=== PATIENT | female | born 1980 | race Caucasian/White ===

== ENCOUNTER 2017-07-15 16:24 | Emergency (ER) | payer OTHER, MEDICAID ==
[~2017-07-15] VITALS: Ht 162.6 cm; Wt 82.3 kg
[2017-07-15 17:04] VITALS: BP 105/63
[2017-07-15 17:43] LABS: BASOPHILS # (AUTO) 0.3 K/uL (0.00-0.22); EOSINOPHILS # (AUTO) 0.1 K/uL (0-0.4); HEMATOCRIT 44.7 % (36-48); HEMOGLOBIN 14.7 g/dL (12.0-16.0); LYMPHOCYTES # (AUTO) 2.3 K/uL (2.5-16.5); MEAN CORPUSCULAR HEMOGLOBIN 31 pg (27-31); MEAN CORPUSCULAR HGB CONC 33 g/dL (33-37); MEAN CORPUSCULAR VOLUME 94 fL (80-94); MONOCYTES # (AUTO) 0.4 K/uL (0.8-1.0); NEUTROPHILS # (AUTO) 4.5 K/uL (1.8-7.7); PLATELET COUNT (AUTO) 288 K/uL (140-450); RED BLOOD CELL COUNT(AUTO) 4.73 MIL/uL (4.20-5.40); RED CELL DISTRIBUTION WIDTH 12.6 % (11.6-13.7); WHITE BLOOD COUNT (AUTO) 7.6 K/uL (4.8-10.8)
[2017-07-15 17:51] LABS: BILIRUBIN,URINE NEGATIVE (NEGATIVE); BLOOD, URINE 3+ (NEGATIVE); COLOR,URINE YELLOW (YELLOW); LEUKOCYTE ESTERASE ,URINE NEGATIVE (NEGATIVE); NITRITE, URINE NEGATIVE (NEGATIVE); UGLUCOSE NEGATIVE (NEGATIVE)
[2017-07-15 17:56] LABS: APPEARANCE,URINE CLOUDY (CLEAR)
[2017-07-15 18:09] LABS: RBC,URINE TOO NUMEROUS TO COUN /HPF (0-5); WBC,URINE 0-5 (RARE) /HPF (0-5)
--- NOTE | 2017-07-15 18:40 | NUR ---
36/F C/O VAG BLEDDING & PELVIC PAIN X 2 DAYS. DENIES N/V/D; SKIN IS PINK/WARM/DRY; AAOX4 WITH EVEN AND STEADY GAIT; LUNGS CLEAR BL; HR EVEN AND REGULAR; PT DENIES ANY FEVER, CP, SOB, OR COUGH AT THIS TIME; PATIENT STATES PAIN OF 05/10 AT THIS TIME; VSS; PATIENT POSITIONED FOR COMFORT; HOB ELEVATED; BEDRAILS UP X2; BED DOWN. ER MD MADE AWARE OF PT STATUS.
--- NOTE | 2017-07-15 19:13 | NUR ---
Dr. Belle evaluating patient at bedside.
--- NOTE | 2017-07-15 19:23 | NUR ---
Pt report given to CHRIS NUR. Transfer of care at this time.
--- NOTE | 2017-07-15 19:25 | NUR ---
PT RESTING IN BED, VSS, AWATING FOR TO BE SEEN.
[2017-07-15] MEDS ORDERED: HYDROcodone/APAP 5/325 MG 1 TAB TAB PO ONE (20:15)
--- NOTE | 2017-07-15 20:30 | NUR ---
RHOGAM PROD INJECTION GIVEN TO PT ON L GLUTEOUS MEDIUS, IM,. PT TOLERATED WELL.
[2017-07-15 20:45] VITALS: BP 105/68
--- NOTE | 2017-07-15 20:45 | NUR ---
Patient discharged with v/s stable. Written and verbal after care instructions given and explained. Patient alert, oriented and verbalized understanding of instructions. Ambulatory with steady gait. All questions addressed prior to discharge. ID band removed. Patient advised to follow up with PMD OR RETURN BACK TO ER IF CONDITION WORSENS. Rx of NORCO given. Patient educated on indication of medication including possible reaction and side effects. Opportunity to ask questions provided and answered.
--- NOTE | 2017-07-15 20:45 | NUR ---
N ADR NOTED AFTER RHOGAM INJECTION.
== END 2017-07-15 20:45 | disposition home or self-care (01) ==
LOC: MED 16:24
DX: O03.9 Complete or unspecified spontaneous abortion without complication (principal); R10.9 Unspecified abdominal pain; Z88.0 Allergy status to penicillin
CPT/HCPCS: 36415; 76817; 81001; 81025; 84702; 85025; 86850; 86886; 86900; 86901; 87086; 99285; J2790; Q0092

== ENCOUNTER 2022-08-11 01:42 | Emergency (ER) | payer MEDICAID, OTHER ==
[~2022-08-11] VITALS: Ht 162.6 cm; Wt 88.9 kg
[2022-08-11 01:50] VITALS: BP 120/73
--- NOTE | 2022-08-11 02:00 | NUR ---
SPOKE WITH PATIENT AT BEDSIDE. PATIENT REPORTS RUE PAIN (SHOULDER, ELBOW, WRIST). PATIENT DENIES CURRENT OR PREVIOUS INJURY TO AFFECTED EXTREMITY. PATIENT DENIES ANY PERSONAL MEDICAL HISTORY AND STATES SHE HAS NOT TAKEN ANYTHING FOR PAIN.
[2022-08-11] MEDS ORDERED: LORazepam 1 MG TAB PO ONE (02:15)
[2022-08-11 02:34] LABS: BASOPHILS # (AUTO) 0.1 K/uL (0.00-0.22); EOSINOPHILS # (AUTO) 0.1 K/uL (0-0.4); EOSINOPHILS % (AUTO) 0.8 % (0.0-4.0); HEMATOCRIT 34.8 % (36-48); HEMOGLOBIN 12.3 g/dL (12.0-16.0); LYMPHOCYTES # (AUTO) 2.1 K/uL (2.5-16.5); LYMPHOCYTES % (AUTO) 22.8 % (20.5-51.1); MEAN CORPUSCULAR HEMOGLOBIN 32 pg (27-31); MEAN CORPUSCULAR HGB CONC 35 g/dL (33-37); MEAN CORPUSCULAR VOLUME 91.3 fL (80-94); MONOCYTES # (AUTO) 0.5 K/uL (0.8-1.0); MONOCYTES % (AUTO) 5.3 % (1.7-9.3); NEUTROPHILS # (AUTO) 6.5 K/uL (1.8-7.7); NEUTROPHILS % (AUTO) 70.1 % (42.2-75.2); PLATELET COUNT (AUTO) 301 K/uL (140-450); RED BLOOD CELL COUNT(AUTO) 3.81 MIL/uL (4.20-5.40); RED CELL DISTRIBUTION WIDTH 12.8 % (11.6-13.7); WHITE BLOOD COUNT (AUTO) 9.2 K/uL (4.8-10.8)
[2022-08-11 02:51] LABS: ALBUMIN 3.1 g/dL (3.4-5.0); CARBON DIOXIDE 23.3 mmol/L (21-32); CREATININE 0.7 mg/dL (0.6-1.3); MAGNESIUM 1.6 mg/dL (1.8-2.4); PHOSPHORUS 3.4 mg/dL (2.5-4.9); POTASSIUM 3.3 mmol/L (3.5-5.1); TOTAL BILIRUBIN 0.3 mg/dL (0.0-1.0)
[2022-08-11] MEDS ORDERED: CALCIUM CARBONATE 500 MG TAB PO ONE (03:35)
[2022-08-11] MEDS ORDERED: MAGNESIUM CHLORIDE 64 MG TABEC PO ONE (03:35)
[2022-08-11] MEDS ORDERED: POTASSIUM CHLORIDE 10 MEQ TABER PO ONE (03:35)
[2022-08-11] MEDS ORDERED: KETOROLAC 30 MG/ML VIAL IM ONE (03:45)
--- NOTE | 2022-08-11 04:24 | NUR ---
Patient discharged with v/s stable. Written and verbal after care instructions given and explained. Patient verbalized understanding. Ambulatory with steady gait. All questions addressed prior to discharge. Advised to follow up with PMD. DX: *HYPOMAGNESEMIA *HYPOKALEMIA *NEUROPATHIC PAIN *HYOCACEMIA, ADULT
== END 2022-08-11 04:24 | disposition home or self-care (01) ==
LOC: MED 01:42
DX: E83.42 Hypomagnesemia (principal); G62.9 Polyneuropathy, unspecified; E16.2 Hypoglycemia, unspecified; E87.6 Hypokalemia
CPT/HCPCS: 36415; 80053; 83735; 84100; 85025; 96372; 99284; J1885

== ENCOUNTER 2022-09-24 14:02 | Emergency (ER) | payer SELFPAY ==
--- NOTE | 2022-09-24 15:03 | NUR ---
PATIENT LEFT WITHOUT BEING SEEN BY DR. ABDI. NO FURTHER CARE PROVIDED FOR PATIENT.
== END 2022-09-24 15:03 | disposition left against medical advice (07) ==
LOC: MED 14:02
DX: R05.9 Cough, unspecified (principal); Z53.21 Procedure and treatment not carried out due to patient leaving prior to being seen by health care provider

== ENCOUNTER 2022-09-25 21:50 | Emergency (ER) | payer OTHER ==
[~2022-09-25] VITALS: Ht 162.6 cm; Wt 81.6 kg
[2022-09-25 22:53] VITALS: BP 122/78
--- NOTE | 2022-09-25 23:01 | NUR ---
SWABBED AND PLACED IN LOBBY
[2022-09-26] MEDS ORDERED: PROM6.2589 PO ×2 (00:41→01:10)
[2022-09-26] MEDS ORDERED: PRED20TA5 PO ×2 (00:41→01:10)
[2022-09-26] MEDS ORDERED: ALBU0.0912 INH ×2 (00:41→01:10)
[2022-09-26] MEDS ORDERED: AMOX500C25 PO ×2 (00:41→01:10)
[2022-09-26 01:06] VITALS: BP 122/78
--- NOTE | 2022-09-26 01:06 | NUR ---
Patient discharged with v/s stable. Written and verbal after care instructions given and explained. Patient alert, oriented and verbalized understanding of instructions. Ambulatory with steady gait. All questions addressed prior to discharge. ID band removed. Patient advised to follow up with PMD. Rx of AMOX, ALBUTEROL, PREDNISONE, PROMETHAZINE given. Patient educated on indication of medication including possible reaction and side effects. Opportunity to ask questions provided and answered.
[2022-09-26] MEDS ORDERED: IBUP-2213 PO (01:11)
== END 2022-09-26 01:06 | disposition home or self-care (01) ==
LOC: MED 21:50
DX: J20.9 Acute bronchitis, unspecified (principal); Z20.822 Contact with and (suspected) exposure to COVID-19; J06.9 Acute upper respiratory infection, unspecified; J32.9 Chronic sinusitis, unspecified
CPT/HCPCS: 99283